=== PATIENT | male | born 1965 | race Caucasian/White ===

== ENCOUNTER 2022-09-24 12:26 | Emergency (ER) | payer BC, SELFPAY ==
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
[2022-09-24 12:53] VITALS: BP 169/93; PULSE 96; RESP 16; TEMP 36.5; O2SAT 96; BMI 46.2
[2022-09-24 15:32] VITALS: BP 145/87; PULSE 86; RESP 18; TEMP 36.6; O2SAT 96
[2022-09-24] MEDS: Tetracaine HCl/PF 0.5% Oph Sol 4 ML DROPS 1 DROP EYE-RIGHT (15:33)
[2022-09-24] MEDS: Fluorescein Sodium STRIP 1 STRIP EYE-RIGHT (15:33)
[2022-09-24 16:55] VITALS: BP 160/88; PULSE 93; RESP 20; TEMP 36.7
[2022-09-24] MEDS: Phenylephrine HCL 2.5% Oph SoL 2 ML BOTTLE 1 DROP EYE-RIGHT (17:23)
[2022-09-24] MEDS: Tropicamide 1 % Ophth Sol 3 ML BTL 1 DROP EYE-RIGHT (17:24)
--- NOTE | 2022-09-24 17:24 | PC.NURSE ---
pt pleasant, calm, and cooperative. a&o x4. brought over by security to Dr. Flowers's office for examination. belongings brought along with pt. rr even/unlabored
== END 2022-09-24 18:52 | disposition home or self-care (01) ==
PROVIDERS: Emergency Provider Emergency Medicine
DX: H43.391 Other vitreous opacities, right eye (principal); H53.8 Other visual disturbances; E11.9 Type 2 diabetes mellitus without complications; I10 Essential (primary) hypertension
CPT/HCPCS: 99283; 99284